=== PATIENT | male | born 1960 | race Caucasian/White ===

== ENCOUNTER 2021-10-01 07:34 | Emergency (ER) | payer OTHER ==
[2021-10-01 07:45] VITALS: BP 115/68; PULSE 113; TEMP 98; BMI 28.8
[2021-10-01] MEDS ORDERED: KETOROLAC TROMETHAMINE 30 MG/1 ML VIAL IM ONE (09:34)
[2021-10-01] MEDS ORDERED: KETOROLAC TROMETHAMINE 30 MG/1 ML VIAL ONE (09:38)
== END 2021-10-01 10:49 | disposition home or self-care (01) ==
LOC: JER 07:34
PROC: 3E023GC Introduction of Other Therapeutic Substance into Muscle, Percutaneous Approach (ICD-10-PCS; principal; 2021-10-01)
DX: S20.212A Contusion of left front wall of thorax, initial encounter (principal); Y04.8XXA Assault by other bodily force, initial encounter
CPT/HCPCS: 71046-TC-FY; 71101-TC-LT-FY; 73090-TC-LT-FY; 99284-25